=== PATIENT | male | born 1965 | race Caucasian/White ===

== ENCOUNTER 2018-03-28 03:15 | Emergency (ER) | payer OTHER ==
[~2018-03-28] VITALS: Ht 175.3 cm; Wt 79.4 kg
[2018-03-28 05:30] VITALS: BP 117/83
[2018-03-28] MEDS ORDERED: PROTONIX40 M1 PO (07:15)
--- NOTE | 2018-03-29 08:50 | P ---
[facility] [place] [address] PROCEDURE REPORT Name: MINERVAAMARILIS Muse Room #: [facility]#: [id number] Admission: 03/28/18 Attend Phys: Discharge: Date of : 61 Report #: [id number] THIS REPORT FOR: //name// CC: Liyah Cook BRIEF HISTORY: The patient is a 52-year-old male who has a long history of reflux symptoms and intermittent solid food dysphagia. He developed food bolus obstruction in the esophagus several hours ago while eating a pork chop. He presented to the Emergency Room and usual maneuvers including glucagon were unsuccessful: The patient is having difficulty with secretions. PREOPERATIVE DIAGNOSIS: Food bolus obstruction in esophagus. POSTOPERATIVE DIAGNOSES: 1. Food bolus obstruction in esophagus, cleared. 2. Moderate diffuse erythematous gastritis. 3. Questionable eosinophilic esophagitis. 4. Edematous and superficially eroded distal esophagus consistent with food bolus obstruction. MEDICATIONS: Conscious sedation with fentanyl 100 mg, Versed 6.0 mg. SPECIMENS: 1. Biopsies of antrum and body to rule out H. pylori. 2. Multiple biopsies of esophagus to rule out eosinophilic esophagitis. ESTIMATED BLOOD LOSS: 3 mL. PROCEDURE: EGD with removal of food bolus obstruction in esophagus, biopsy and Borja dilation of the esophagus. FINDINGS: Prior to conscious sedation, procedure of upper endoscopy and removal of food bolus was discussed with the patient as well as potential risks and its complications. He indicates he understands and desires to proceed. DESCRIPTION OF PROCEDURE: With the patient in left lateral decubitus position, the Olympus video endoscope was inserted in the cervical esophagus under direct vision without difficulty. Examination of this organ through its entire length revealed normal esophageal mucosa in the distal esophagus. In the distal esophagus, there was a large food bolus consistent with history of ingestion of pork chop. There was also pooling of clear secretions. We aspirated away the secretions. We carefully examined around the food bolus and it appeared to be impacted about the level of the GE junction. We applied gentle pressure to the bolus, but it would not pass beyond the GE junction. We then made several passes with a Day net. We had difficulty passing the Day net completely [facility] [address] [place] [address] PROCEDURE REPORT Name: AMARILIS PALMA Room #: REG Jey#: [id number] Admission: 03/28/18 Attend Phys: Discharge: Date of : 61 Report #: [id number] alongside the bolus. However, we were able to break off several chunks of the food bolus and remove them. After several pieces had been taken off the food bolus, we were able to push the bolus into the stomach. Examination of distal esophagus revealed mucosal edema from the food bolus obstruction. There was also superficial erosion. Deep ulcers were not seen. A definite stricture or ring was not seen. However, the mucosa was edematous. There was no evidence of neoplasm. A hiatus hernia was not seen. The scope was advanced in the stomach, was examined on end view as well as retroflexed views. There were some clear secretions and the piece of meat was seen in the fundus of the stomach. Examination of the stomach otherwise revealed diffuse gastritis with erythema throughout. No ulcers were seen. No mass lesions were seen in the retroflexed position in the cardia. Pylorus was normal. Duodenal bulb was normal. Duodenal sweep down to the second portion was normal. At that point, the scope was slowly withdrawn and careful circumferential views were obtained. Multiple biopsies were obtained of the gastritis. We also obtained multiple biopsies of the esophagus to evaluate for eosinophilic esophagitis. In addition, there were noted to be long furrows in the esophagus suggestive of eosinophilic esophagitis. After removal of the scope, we dilated with a single passage of 50-Georgian Borja dilator without difficulty. CONDITION OF THE PATIENT UPON DISCHARGE: Following procedure, the patient drowsy and will be discharged home when fully ambulatory. INSTRUCTIONS TO THE PATIENT AND FAMILY AT THE TIME OF DISCHARGE: We will follow up on pathology report and make further recommendations. Also, we will start him on pantoprazole 40 mg daily. We will make further recommendations after review of the pathology. At this time, I suggest he take the pantoprazole 40 mg daily for 6 weeks. Thereafter, he may try to reduce to less than daily or lowest dose to control symptoms. <ELECTRONICALLY SIGNED> By: Aaron Eaton MD 03/29/18 [id number] Aaron Eaton MD /nt
--- NOTE | 2018-03-31 15:06 | PATH ---
[facility] [place] [address] PATHOLOGY RPT PROCEDURE Name: AMARILIS ROSE Room #: DEP PEDRITO Khanna#: [id number] Admission: 03/28/18 Date of : 61 Discharge: 03/28/18 Report #: [id number] Path Case #: [id number] [facility] Accession Number: [id number] . 01 Material submitted: . PART A: BX GASTRITIS PART B: BX ESOPHAGUS . 01 Clinical history: . Food impaction A. R/O H. pylori B. R/O eosinophilic esophagitis . 02 Diagnosis: A. Gastric mucosa, gastritis, endoscopic biopsy: - Mild chronic inflammation. - Negative for intestinal metaplasia or atrophy. - Negative for Helicobacter pylori (properly controlled immunohistochemical stain performed). . B. Squamous mucosa, esophagus rule out eosinophilic esophagitis, endoscopic biopsy: - Moderate esophagitis with numerous intraepithelial eosinophils ranging up to 36/hpf, please see comment. . (IUV:at;03/30/2018) QTA/03/31/2018 . 02 Comment: Examination of the esophageal biopsy tissue shows squamous mucosa with a marked number of intraepithelial eosinophils. Although eosinophils are commonly encountered in inflammation due to reflux esophagitis, the eosinophils in the present specimen are numerous, exceeding 36/hpf. Apart from reflux esophagitis, potential etiologies for the histologic pattern include allergic and collagen vascular diseases, fungal or parasitic infections, and eosinophilic esophagitis (idiopathic). Please correlate with clinical and endoscopic findings. . (IUV:at;03/30/2018) . 02 Electronically signed: . Teresa Vega MD, Pathologist NPI- [id number] . 01 Gross description: . A. The specimen is received in formalin, labeled "Amarilis Rose, biopsy of gastritis". Received are six segments of pale [place] [address] PATHOLOGY RPT PROCEDURE Name: AMARILIS ROSE Room #: DEP PEDRITO Kahnna#: [id number] Admission: 03/28/18 Date of : 61 Discharge: 03/28/18 Report #: [id number] Path Case #: [id number] size from 0.2 to 0.4 cm in maximum dimensions. The specimen is submitted entirely in cassette A1. . B. The specimen is received in formalin, labeled "Amarilis Rose, biopsy of esophagus". Received are six segments of pale aponte soft tissue ranging in size from 0.2 to 0.5 cm in maximum dimensions. The specimen is submitted entirely in cassette B1. (CAA; 03/30/2018) QAC/QAC . 02 Pathologist provided ICD-10: K29.50, K20.9 . 02 CPT . 023208, 515082, [id number] Specimen Comment: A courtesy copy of this report has been sent to Specimen Comment: [phone], . Specimen Comment: Report sent to / DR CORONADO Performed at: [address], [place] [id number] MD Franklin Morrison MD Phone: [phone] Performed at: [address] [id number] MD Teresa Vega MD Phone: [phone]
== END 2018-03-28 13:07 | disposition home or self-care (01) ==
LOC: ER 03:15
DX: T18.120A Food in esophagus causing compression of trachea, initial encounter (principal); F17.210 Nicotine dependence, cigarettes, uncomplicated; Z88.5 Allergy status to narcotic agent; Z88.8 Allergy status to other drugs, medicaments and biological substances; X58.XXXA Exposure to other specified factors, initial encounter; Y93.89 Activity, other specified; Y92.89 Other specified places as the place of occurrence of the external cause; Y99.8 Other external cause status
CPT/HCPCS: 70005